=== PATIENT | male | born 1940 | race Caucasian/White ===

== ENCOUNTER 2018-03-30 08:28 | Emergency (ER) | payer OTHER ==
[~2018-03-30] VITALS: Ht 177.8 cm; Wt 88.5 kg
[~2018-03-30 08:28] MED LIST: ABAT250V; ALPR.5 PO; AMIODARONE HCL100 MG PO; ASCO500 PO; ASPI81CH PO; ASPI81EC; ASPI81EC PO; ATEN25; ATOR10; B50 COMPLEX PO; Beta Carot25000 UNIT PO; CAMPRAL; CELE100; CELE200 PO; CLOP75; CLOP75 PO; CODACE30 PO; CODLIVC PO; COSOPT PF EYE1 EACH OP; CYAN500 PO; ELIQUIS5 MG PO; ERGO400 PO; EZET10-40; FINA5 PO; HYDACE5 PO; Isosorbide Mono60 MG PO; L-Lysine500 M1 PO; LATA.005SO OD; LIVALO; MELA3 PO; METO25ER PO; MULTAQ; MULTAQ PO; Men's Multi-Vi1 EACH PO; Metoprolol Succ25 MG PO; NALT50 PO; NIAC500 PO; NIAC500ER; OMEP20ER; OXYACE5T PO; PANT40; PANT40 PO; PRED20 PO; PROM25 PO; ROSU10TA; SAM E PO; SERT50 PO; SPIR25 PO; TAMS.4ER PO; TIMDOROPSO BOTHEYES; TIMO.25OPS OD; TIMO.5OPG OD; TIMO.5OPSO OU; TIMO10T; TOBR.3OPSO OP; TOCO400 PO; TORSE20 PO; UBID100 PO; VYTORIN; WARF5 PO; WARF6 PO; Xalatan2.5 ML; ZALATAN OU
[2018-03-30 09:13] LABS: BASOPHILS ABSOLUTE AUTO 0.04 K/mm3 (0.00-0.23); BASOPHILS PERCENT AUTO 1 % (0-2); EOSINOPHILS ABSOLUTE AUTO 0.15 K/mm3 (0.00-0.68); EOSINOPHILS PERCENT AUTO 3 % (0-6); Hematocrit 44.3 % (37.0-53.0); Hemoglobin 14.8 g/dL (13.5-17.5); IMMATURE GRAN ABSOLUTE AUTO 0.01 K/mm3 (0.00-0.10); IMMATURE GRAN PERCENT AUTO 0 % (0-1); LYMPHOCYTES ABSOLUTE AUTO 1.49 K/mm3 (0.84-5.20); LYMPHOCYTES PERCENT AUTO 33 % (21-46); MONOCYTES ABSOLUTE AUTO 0.51 K/mm3 (0.16-1.47); MONOCYTES PERCENT AUTO 11 % (4-13); Mean Corpuscular HGB 30.9 pg (26.0-34.0); Mean Corpuscular HGB Conc 33.4 g/dL (31.5-36.5); Mean Corpuscular Volume 93 fL (80-100); Mean Platelet Volume 9.7 fL (9.1-12.4); NEUTROPHILS ABSOLUTE AUTO 2.36 K/mm3 (1.96-9.15); NEUTROPHILS PERCENT AUTO 52 % (41-73); Platelet Count 142 K/mm3 (150-400); RDW Standard Deviation 44.5 fL (35.1-46.3); Red Blood Cell Count 4.79 M/mm3 (4.30-5.90); White Blood Cell Count 4.56 K/mm3 (4.00-11.30)
[2018-03-30] MEDS ORDERED: SPIR25 PO (09:20)
[2018-03-30] MEDS ORDERED: TAMS.4ER PO (09:23)
[2018-03-30 09:28] LABS: Alanine Aminotransfer (ALT/SGP 27 U/L (12-78); Albumin, Blood 3.5 g/dL (3.4-5.0); Alk Phos 86 U/L (50-136); Anion Gap 8 mmol/L (6-16); Aspartate Aminotrans (AST/SGOT 23 U/L (12-37); Bilirubin, Total 0.7 mg/dL (0.1-1.0); Blood Urea Nitrogen 19 mg/dL (8-24); Bun/Creatinine Ratio 19.5 (12.0-20.0); CO2, Blood 27 mmol/L (21-32); Chloride, Blood 104 mmol/L (98-108); Creatinine, Blood 0.97 mg/dL (0.60-1.20); Globulin, Blood 3.4 g/dL (2.2-4.0); Glomerular Filtration Rate >60 (60-); Glucose, Blood 86 mg/dL (70-99); Potassium, Blood 4.1 mmol/L (3.5-5.5); Sodium, Blood 139 mmol/L (136-145); Total Protein, Blood 6.9 g/dL (6.4-8.2); Troponin I 0.028 ng/mL (0.000-0.040)
[2018-03-30 09:29] LABS: International Normalized Ratio 1.09; Prothrombin Time Results 11.4 Sec (9.7-11.5)
[2018-03-30] MEDS ORDERED: CLOP75 PO (10:09)
== END 2018-03-30 10:21 | disposition home or self-care (01) ==
LOC: ER 08:28
PROVIDERS: Physician Assistant
DX: I20.9 Angina pectoris, unspecified (principal); Z88.0 Allergy status to penicillin; Z88.1 Allergy status to other antibiotic agents; Z88.8 Allergy status to other drugs, medicaments and biological substances; Z79.899 Other long term (current) drug therapy; I25.10 Atherosclerotic heart disease of native coronary artery without angina pectoris; I48.91 Unspecified atrial fibrillation; E78.5 Hyperlipidemia, unspecified; I10 Essential (primary) hypertension; E11.9 Type 2 diabetes mellitus without complications; K21.9 Gastro-esophageal reflux disease without esophagitis; Z87.891 Personal history of nicotine dependence
CPT/HCPCS: 36415; 71046; 80053; 83880; 84484; 85025; 85610; 93005; 93010; 99284

== ENCOUNTER 2020-03-02 16:05 | Inpatient (IN) | payer OTHER ==
[~2020-03-02] VITALS: Ht 180.3 cm; Wt 85.0 kg
[2020-03-02 16:38] LABS: BASOPHILS ABSOLUTE AUTO 0.02 K/mm3 (0.00-0.23); BASOPHILS PERCENT AUTO 1 % (0-2); EOSINOPHILS ABSOLUTE AUTO 0.04 K/mm3 (0.00-0.68); EOSINOPHILS PERCENT AUTO 1 % (0-6); Hematocrit 42.9 % (37.0-53.0); Hemoglobin 14.1 g/dL (13.5-17.5); IMMATURE GRAN ABSOLUTE AUTO 0.01 K/mm3 (0.00-0.10); IMMATURE GRAN PERCENT AUTO 0 % (0-1); LYMPHOCYTES ABSOLUTE AUTO 0.55 K/mm3 (0.84-5.20); LYMPHOCYTES PERCENT AUTO 15 % (21-46); MONOCYTES ABSOLUTE AUTO 0.43 K/mm3 (0.16-1.47); MONOCYTES PERCENT AUTO 12 % (4-13); Mean Corpuscular HGB 30.7 pg (26.0-34.0); Mean Corpuscular HGB Conc 32.9 g/dL (31.5-36.5); Mean Corpuscular Volume 93 fL (80-100); Mean Platelet Volume 10.4 fL (9.1-12.4); NEUTROPHILS ABSOLUTE AUTO 2.65 K/mm3 (1.96-9.15); NEUTROPHILS PERCENT AUTO 72 % (41-73); Platelet Count 111 K/mm3 (150-400); RDW Coefficient Variation 14.2 % (11.7-14.2); RDW Standard Deviation 49.1 fL (35.1-46.3)
[2020-03-02 16:50] LABS: International Normalized Ratio 1.15; Prothrombin Time Results 12.2 Sec (9.7-11.5)
[2020-03-02 17:00] LABS: Alanine Aminotransfer (ALT/SGP 31 U/L (12-78); Albumin, Blood 3.4 g/dL (3.4-5.0); Albumin/Globulin Ratio 0.9 (0.8-1.8); Alk Phos 107 U/L (50-136); Anion Gap 6 mmol/L (6-16); Aspartate Aminotrans (AST/SGOT 54 U/L (12-37); Bilirubin, Total 1.3 mg/dL (0.1-1.0); Blood Urea Nitrogen 13 mg/dL (8-24); Bun/Creatinine Ratio 16.6 (12.0-20.0); CO2, Blood 22 mmol/L (21-32); Calcium, Blood 8.7 mg/dL (8.5-10.1); Chloride, Blood 105 mmol/L (98-108); Creatinine, Blood 0.79 mg/dL (0.60-1.20); Globulin, Blood 3.6 g/dL (2.2-4.0); Glomerular Filtration Rate >60 (60-); Glucose, Blood 106 mg/dL (70-99); Potassium, Blood 4.9 mmol/L (3.5-5.5); Sodium, Blood 133 mmol/L (136-145); Troponin I 0.136 ng/mL (0.000-0.040)
[2020-03-02] MEDS ORDERED: GABA300 PO (17:42)
[2020-03-02] MEDS ORDERED: POTCHL20ER PO (17:42)
[2020-03-02] MEDS ORDERED: CALCIUM 600 +1 EA11 PO (17:43)
[2020-03-03 00:41] LABS: BASOPHILS ABSOLUTE AUTO 0.03 K/mm3 (0.00-0.23); BASOPHILS PERCENT AUTO 1 % (0-2); EOSINOPHILS ABSOLUTE AUTO 0.07 K/mm3 (0.00-0.68); EOSINOPHILS PERCENT AUTO 2 % (0-6); Hematocrit 41.4 % (37.0-53.0); Hemoglobin 13.7 g/dL (13.5-17.5); IMMATURE GRAN ABSOLUTE AUTO 0.01 K/mm3 (0.00-0.10); IMMATURE GRAN PERCENT AUTO 0 % (0-1); LYMPHOCYTES ABSOLUTE AUTO 0.68 K/mm3 (0.84-5.20); LYMPHOCYTES PERCENT AUTO 19 % (21-46); MONOCYTES ABSOLUTE AUTO 0.56 K/mm3 (0.16-1.47); MONOCYTES PERCENT AUTO 16 % (4-13); Mean Corpuscular HGB 30.6 pg (26.0-34.0); Mean Corpuscular HGB Conc 33.1 g/dL (31.5-36.5); Mean Corpuscular Volume 92 fL (80-100); NEUTROPHILS ABSOLUTE AUTO 2.15 K/mm3 (1.96-9.15); NEUTROPHILS PERCENT AUTO 61 % (41-73); Platelet Count 109 K/mm3 (150-400); RDW Coefficient Variation 14.3 % (11.7-14.2); RDW Standard Deviation 48.3 fL (35.1-46.3); Red Blood Cell Count 4.48 M/mm3 (4.30-5.90)
[2020-03-03 00:54] LABS: Anion Gap 6 mmol/L (6-16); Blood Urea Nitrogen 11 mg/dL (8-24); Bun/Creatinine Ratio 13.4 (12.0-20.0); CO2, Blood 26 mmol/L (21-32); Calcium, Blood 8.2 mg/dL (8.5-10.1); Chloride, Blood 108 mmol/L (98-108); Creatinine, Blood 0.82 mg/dL (0.60-1.20); Glomerular Filtration Rate >60 (60-); Glucose, Blood 106 mg/dL (70-99); Potassium, Blood 3.9 mmol/L (3.5-5.5); Sodium, Blood 140 mmol/L (136-145)
[2020-03-05] MEDS ORDERED: AMLO5 PO (10:49)
[2020-03-05] MEDS ORDERED: ASPIR 8181 M1 PO (10:51)
== END 2020-03-05 11:05 | disposition home or self-care (01) | DRG 246 ==
LOC: ER 16:05 → PCU 18:35
PROVIDERS: Nurse Practitioner Acute Care; Physician Assistant; ADMIT Internal Medicine
PROC: 4A023N7 Measurement of Cardiac Sampling and Pressure, Left Heart, Percutaneous Approach (ICD-10-PCS; principal; 2020-03-04)
PROC: 027034Z Dilation of Coronary Artery, One Artery with Drug-eluting Intraluminal Device, Percutaneous Approach (ICD-10-PCS; 2020-03-04)
PROC: 02703ZZ Dilation of Coronary Artery, One Artery, Percutaneous Approach (ICD-10-PCS; 2020-03-04)
PROC: B2111ZZ Fluoroscopy of Multiple Coronary Arteries using Low Osmolar Contrast (ICD-10-PCS; 2020-03-04)
PROC: B2131ZZ Fluoroscopy of Multiple Coronary Artery Bypass Grafts using Low Osmolar Contrast (ICD-10-PCS; 2020-03-04)
PROC: B240ZZ3 Ultrasonography of Single Coronary Artery, Intravascular (ICD-10-PCS; 2020-03-04)
DX: T82.855A Stenosis of coronary artery stent, initial encounter (principal); I21.4 Non-ST elevation (NSTEMI) myocardial infarction; I48.20 Chronic atrial fibrillation, unspecified; I25.110 Atherosclerotic heart disease of native coronary artery with unstable angina pectoris; K21.9 Gastro-esophageal reflux disease without esophagitis; H40.9 Unspecified glaucoma; E11.9 Type 2 diabetes mellitus without complications; N40.0 Benign prostatic hyperplasia without lower urinary tract symptoms; Z95.1 Presence of aortocoronary bypass graft; Z98.52 Vasectomy status; Z87.891 Personal history of nicotine dependence; E78.5 Hyperlipidemia, unspecified; I48.91 Unspecified atrial fibrillation; Z95.5 Presence of coronary angioplasty implant and graft; K58.9 Irritable bowel syndrome, unspecified; Z79.82 Long term (current) use of aspirin
CPT/HCPCS: 36415; 71046; 76705; 76937; 80048; 80053; 83880; 84484; 85025; 85347; 85610; 85730; 92978; 93005; 93010; 93306; 93459; 94660; 94762; 99152; 99153; 99285-25; A9270; A9270-GY; C1725; C1753; C1769; C1874; C1884; C1887; C1894; C9604; J0461; J1644; J2250; J3010; J7030; Q9967

== ENCOUNTER → 2020-03-10 | Outpatient (CLI) | payer OTHER ==
[~2020-03-10] MED LIST changes: +AMLO5 PO; +ASPIR 8181 M1 PO; +CALCIUM 600 +1 EA11 PO; +GABA300 PO; +POTCHL20ER PO
[2020-03-11 14:48] LABS: Stool Occult Bld Immuno 1 Negative (NEGATIVE)
== END ==
PROVIDERS: Family Medicine
DX: R10.11 Right upper quadrant pain (principal)

== ENCOUNTER 2020-03-26 10:36 | Emergency (ER) | payer OTHER ==
[~2020-03-26] VITALS: Ht 180.3 cm; Wt 88.5 kg
[2020-03-26] MEDS ORDERED: Ultram50 MG PO (14:13)
== END 2020-03-26 15:04 | disposition home or self-care (01) ==
LOC: ER 10:36
DX: R55 Syncope and collapse (principal); S51.811A Laceration without foreign body of right forearm, initial encounter; S70.02XA Contusion of left hip, initial encounter; S40.012A Contusion of left shoulder, initial encounter; I48.91 Unspecified atrial fibrillation; Z88.0 Allergy status to penicillin; Z88.1 Allergy status to other antibiotic agents; Z88.8 Allergy status to other drugs, medicaments and biological substances; Z79.899 Other long term (current) drug therapy; Z79.01 Long term (current) use of anticoagulants; Z79.82 Long term (current) use of aspirin; Z79.02 Long term (current) use of antithrombotics/antiplatelets; I25.10 Atherosclerotic heart disease of native coronary artery without angina pectoris; Z95.5 Presence of coronary angioplasty implant and graft; E78.5 Hyperlipidemia, unspecified; I10 Essential (primary) hypertension; E11.9 Type 2 diabetes mellitus without complications; N40.0 Benign prostatic hyperplasia without lower urinary tract symptoms; K21.9 Gastro-esophageal reflux disease without esophagitis; Z87.891 Personal history of nicotine dependence; W18.30XA Fall on same level, unspecified, initial encounter
CPT/HCPCS: 36415; 73030; 73502; 93005; 93010; 99283-25

== ENCOUNTER → 2022-01-07 | Outpatient (CLI) | payer OTHER ==
[~2022-01-07] MED LIST changes: +Ultram50 MG PO
[2022-01-07 11:31] LABS: BASOPHILS ABSOLUTE AUTO 0.03 K/mm3 (0.00-0.23); BASOPHILS PERCENT AUTO 1 % (0-2); EOSINOPHILS ABSOLUTE AUTO 0.13 K/mm3 (0.00-0.68); EOSINOPHILS PERCENT AUTO 4 % (0-6); Hematocrit 44.8 % (37.0-53.0); Hemoglobin 15.1 g/dL (13.5-17.5); IMMATURE GRAN ABSOLUTE AUTO 0.01 K/mm3 (0.00-0.10); IMMATURE GRAN PERCENT AUTO 0 % (0-1); LYMPHOCYTES ABSOLUTE AUTO 0.67 K/mm3 (0.84-5.20); LYMPHOCYTES PERCENT AUTO 19 % (21-46); MONOCYTES ABSOLUTE AUTO 0.46 K/mm3 (0.16-1.47); MONOCYTES PERCENT AUTO 13 % (4-13); Mean Corpuscular HGB 31.4 pg (26.0-34.0); Mean Corpuscular HGB Conc 33.7 g/dL (31.5-36.5); Mean Corpuscular Volume 93 fL (80-100); NEUTROPHILS ABSOLUTE AUTO 2.22 K/mm3 (1.96-9.15); NEUTROPHILS PERCENT AUTO 63 % (41-73); RDW Coefficient Variation 13.7 % (11.7-14.2); RDW Standard Deviation 46.8 fL (35.1-46.3); Red Blood Cell Count 4.81 M/mm3 (4.30-5.90); White Blood Cell Count 3.52 K/mm3 (4.00-11.30)
[2022-01-07 11:54] LABS: Mean Platelet Volume 10.2 fL (9.1-12.4); Platelet Count 109 K/mm3 (150-400)
[2022-01-07 12:02] LABS: Alanine Aminotransfer (ALT/SGP 34 U/L (12-78); Albumin, Blood 3.8 g/dL (3.4-5.0); Albumin/Globulin Ratio 1.3 (0.8-1.8); Alk Phos 93 U/L (40-126); Anion Gap 7 mmol/L (6-16); Aspartate Aminotrans (AST/SGOT 22 U/L (12-37); Bilirubin, Total 1.2 mg/dL (0.1-1.0); Blood Urea Nitrogen 16 mg/dL (8-24); Bun/Creatinine Ratio 14.8 (12.0-20.0); CO2, Blood 30 mmol/L (21-32); Calcium, Blood 9.1 mg/dL (8.5-10.1); Chloride, Blood 103 mmol/L (98-108); Creatinine, Blood 1.08 mg/dL (0.60-1.20); Globulin, Blood 2.9 g/dL (2.2-4.0); Glomerular Filtration Rate >60 (60-); Glucose, Blood 99 mg/dL (70-99); Potassium, Blood 4.2 mmol/L (3.5-5.5); Sodium, Blood 140 mmol/L (136-145); Total Protein, Blood 6.7 g/dL (6.4-8.2)
== END ==
LOC: LAB SHORT 11:27
PROVIDERS: Physician Assistant Medical
DX: R53.83 Other fatigue (principal)
CPT/HCPCS: 80053; 84443; 85025

== ENCOUNTER 2024-12-13 14:50 | Inpatient (IN) | payer OTHER ==
[~2024-12-13] VITALS: Ht 172.7 cm; Wt 90.0 kg
[~2024-12-13 14:50] MED LIST changes: +ALPR.25 PO; +Aspir 8181 MG PO; +DORZOLAMIDE-TIM10 ML BOTHEYES; +EZET10 PO; +LATA.005SO BOTHEYES; +NITR.4SL SL; +PANTOPRAZOLE SO20 M1 PO; +TRELEGY ELLIPT1 EAC1 INH; -Xalatan2.5 ML
[2024-12-13 15:21] LABS: BASOPHILS ABSOLUTE AUTO 0.03 K/mm3 (0.00-0.23); BASOPHILS PERCENT AUTO 1 % (0-2); EOSINOPHILS ABSOLUTE AUTO 0.14 K/mm3 (0.00-0.68); EOSINOPHILS PERCENT AUTO 3 % (0-6); Hematocrit 45.1 % (37.0-53.0); Hemoglobin 14.9 g/dL (13.5-17.5); IMMATURE GRAN PERCENT AUTO 0 % (0-1); LYMPHOCYTES PERCENT AUTO 19 % (21-46); MONOCYTES ABSOLUTE AUTO 0.42 K/mm3 (0.16-1.47); MONOCYTES PERCENT AUTO 10 % (4-13); Mean Corpuscular Volume 91 fL (80-100); Mean Platelet Volume 9.6 fL (9.1-12.4); NEUTROPHILS ABSOLUTE AUTO 2.73 K/mm3 (1.96-9.15); NEUTROPHILS PERCENT AUTO 66 % (41-73); Platelet Count 126 K/mm3 (150-400); RDW Coefficient Variation 14.5 % (11.7-14.2); RDW Standard Deviation 48.6 fL (35.1-46.3); Red Blood Cell Count 4.96 M/mm3 (4.30-5.90); White Blood Cell Count 4.12 K/mm3 (4.00-11.30)
[2024-12-13] MEDS ORDERED: Aspirin 325 MG Tab PO ONE (15:30)
[2024-12-13 15:51] LABS: Albumin/Globulin Ratio 1.1 (0.8-1.8); Bilirubin, Total 1.3 mg/dL (0.1-1.0); Calcium, Blood 9.7 mg/dL (8.5-10.1); Globulin, Blood 3.6 g/dL (2.2-4.0); Potassium, Blood 3.8 mmol/L (3.5-5.5); Total Protein, Blood 7.6 g/dL (6.4-8.2)
[2024-12-13 15:59] LABS: Anti-Xa UFH, PHA Monitoring 0.27 IU/mL; International Normalized Ratio 1.09; Prothrombin Time Results 11.6 Sec (9.7-11.5)
[2024-12-13] MEDS ORDERED: FentaNYL Citrate 50 MCG/ML 2 ML Injection IV PRN (16:55)
[2024-12-13] MEDS ORDERED: Nitroglycerin 0.4 MG SUBL SL PRN (16:55)
[2024-12-13] MEDS ORDERED: FLU VACC TS2024-25(6MOS UP)/PF 45 MCG/0.5 ML SYRINGE IM SCH (16:55)
[2024-12-13] MEDS ORDERED: NS 1,000 ML IV SCH (17:00)
[2024-12-13] MEDS ORDERED: Ondansetron HCl 2 MG / ML 2ML Vial IV PRN (17:00)
[2024-12-13] MEDS ORDERED: Clopidogrel Bisulfate 300 MG Cap PO ONE ×2 (17:00→19:55)
[2024-12-13] MEDS ORDERED: Dose Adjust by Pharmacy XX STA (17:29)
[2024-12-13] MEDS ORDERED: Heparin Sodium,Porcine/0.5 NS 500 ML IV SCH (17:30)
[2024-12-13 18:48] VITALS: BP 155/86
[2024-12-13] MEDS ORDERED: SUPER B-50 COM1 EACH PO (18:52)
[2024-12-13] MEDS ORDERED: C COMPLEX1000 M1 PO (18:52)
[2024-12-13] MEDS ORDERED: ALPHA LIPOIC A600 M1 PO (18:59)
[2024-12-13] MEDS ORDERED: Natrol Alpha 3300 MG PO (19:00)
[2024-12-13] MEDS ORDERED: ALPRAZolam 0.5 MG Tab PO ONE (20:50)
[2024-12-13] MEDS ORDERED: ALPRAZolam 0.25 MG Tab PO PRN (21:15)
[2024-12-13 23:47] VITALS: BP 115/68
[2024-12-14] VITALS (7 sets, daily range): BP systolic 108–133; BP diastolic 67–87
[2024-12-14 02:02] LABS: BASOPHILS ABSOLUTE AUTO 0.04 K/mm3 (0.00-0.23); BASOPHILS PERCENT AUTO 1 % (0-2); EOSINOPHILS ABSOLUTE AUTO 0.15 K/mm3 (0.00-0.68); EOSINOPHILS PERCENT AUTO 4 % (0-6); Hemoglobin 12.9 g/dL (13.5-17.5); IMMATURE GRAN PERCENT AUTO 0 % (0-1); LYMPHOCYTES ABSOLUTE AUTO 0.82 K/mm3 (0.84-5.20); LYMPHOCYTES PERCENT AUTO 23 % (21-46); MONOCYTES ABSOLUTE AUTO 0.38 K/mm3 (0.16-1.47); MONOCYTES PERCENT AUTO 11 % (4-13); Mean Corpuscular HGB 30.6 pg (26.0-34.0); Mean Corpuscular HGB Conc 33.1 g/dL (31.5-36.5); Mean Corpuscular Volume 92 fL (80-100); Mean Platelet Volume 9.7 fL (9.1-12.4); NEUTROPHILS PERCENT AUTO 61 % (41-73); Platelet Count 105 K/mm3 (150-400); RDW Coefficient Variation 14.6 % (11.7-14.2); RDW Standard Deviation 49.6 fL (35.1-46.3); Red Blood Cell Count 4.22 M/mm3 (4.30-5.90); White Blood Cell Count 3.59 K/mm3 (4.00-11.30)
[2024-12-14 02:03] LABS: Albumin, Blood 3.2 g/dL (3.4-5.0); Albumin/Globulin Ratio 1.1 (0.8-1.8); Bilirubin, Total 1.1 mg/dL (0.1-1.0); Bun/Creatinine Ratio 24.5 (12.0-20.0); Calcium, Blood 9.4 mg/dL (8.5-10.1); Creatinine, Blood 0.82 mg/dL (0.60-1.20); Globulin, Blood 2.8 g/dL (2.2-4.0); Potassium, Blood 3.9 mmol/L (3.5-5.5)
[2024-12-14] MEDS ORDERED: Dose Adjust by Pharmacy XX STA ×3 (02:39→09:57)
--- NOTE | 2024-12-14 04:33 | NUR ---
SHIFT SUMMARY PT A&OX4. VSS ON RA >97%. PT ON TELE IN AFIB, DARCY LOW 35HR. PT USING HOME CPAP HS. PT NPO FOR POTENTIAL INTERVENTIONS. PT USING URINAL AT BEDSIDE WITH GOOD OUTPUT. HERPARIN CONTINUOUSLY RUNNING @16U WITH NS @75CC/HR RUNNING X1 BAG, IN OTHER ARM. SINCE ARRIVAL TO UNIT PT HAS NO C/O CP OR PAIN ANYWHERE ELSE. NO FURTHER QUESTIONS OR CONCERNS AT THIS TIME. WILL CONTINUE WITH PLAN OF CARE AND REPORT TO ONCOMING DAY NURSE.
[2024-12-14] MEDS ORDERED: Pantoprazole Sodium 20 MG Tab PO SCH (06:00)
[2024-12-14] MEDS ORDERED: Clopidogrel Bisulfate 75 MG Tab PO SCH (09:00)
[2024-12-14] MEDS ORDERED: Potassium Chloride 20 MEQ TabCR PO SCH (09:00)
[2024-12-14] MEDS ORDERED: Aspirin 81 MG Chew PO SCH (09:00)
[2024-12-14] MEDS ORDERED: Isosorbide Mononitrate 60 MG TABCR PO SCH (09:00)
[2024-12-14] MEDS ORDERED: Finasteride 5 MG Tab PO SCH (09:00)
[2024-12-14] MEDS ORDERED: Dorzolamide/Timolol Opth Soln 10 ML BOTHEYES SCH (09:00)
[2024-12-14] MEDS ORDERED: Torsemide 20 MG TAB PO SCH (09:00)
[2024-12-14] MEDS ORDERED: Acetaminophen 325 MG TABLET PO PRN (09:55)
[2024-12-14] MEDS ORDERED: Verapamil HCL 2.5 MG/ML 2ML Injection ONE (14:17)
[2024-12-14] MEDS ORDERED: NS 250 ML IV ONE (14:17)
[2024-12-14] MEDS ORDERED: NS 1,000 ML IV ONE ×2 (14:18→15:08)
[2024-12-14] MEDS ORDERED: Heparin Sodium 1000 Units/ML 10ML MDV ONE ×2 (14:18→16:20)
[2024-12-14] MEDS ORDERED: Nitroglycerin 2 MG/20 ML BTL ONE (14:18)
[2024-12-14] MEDS ORDERED: Midazolam HCl 1MG / ML 2ML Vial ONE (15:08)
[2024-12-14] MEDS ORDERED: FentaNYL Citrate 50 MCG/ML 2 ML Injection ONE (15:08)
[2024-12-14] MEDS ORDERED: NS 1,000 ML IV SCH (17:45)
--- NOTE | 2024-12-14 18:20 | NUR ---
SHIFT SUMMARY: PT HAS BEEN A&Ox4, VERY [place], ABLE TO MAKE NEEDS KNOWN. PT DENIES SOB, O2 SATS >93% ON RA. PT DENIES CP THIS SHIFT, AFIB ON MONITOR RATE MOSTLY 40s-50s WHICH PT STATES IS NORMAL FOR HIM. HEPARIN INFUSION PER ORDERS UNTIL PT WENT TO BEATER BOSS, RETURNING TO ROOM APPROX 1740, R RADIAL SITE W/TR BAND INFLATED TO 12CC, APPEARS WNL AT THIS TIME. POST ANGIO EKG IN PROGRESS AT THIS TIME, FLUIDS TO BE STARTED PER ORDER.
[2024-12-14] MEDS ORDERED: Tamsulosin HCl 0.4 MG Cap PO SCH (21:00)
[2024-12-14] MEDS ORDERED: Gabapentin 400 MG Cap PO SCH (21:00)
[2024-12-14] MEDS ORDERED: Latanoprost 0.005% Opth Soln 2.5 ML BOTHEYES SCH (21:00)
[2024-12-15 01:04] VITALS: BP 108/71
[2024-12-15 04:22] VITALS: BP 97/64
[2024-12-15 05:27] LABS: BASOPHILS ABSOLUTE AUTO 0.02 K/mm3 (0.00-0.23); BASOPHILS PERCENT AUTO 1 % (0-2); EOSINOPHILS ABSOLUTE AUTO 0.09 K/mm3 (0.00-0.68); EOSINOPHILS PERCENT AUTO 3 % (0-6); Hematocrit 37.4 % (37.0-53.0); Hemoglobin 12.3 g/dL (13.5-17.5); IMMATURE GRAN PERCENT AUTO 0 % (0-1); LYMPHOCYTES ABSOLUTE AUTO 0.63 K/mm3 (0.84-5.20); LYMPHOCYTES PERCENT AUTO 21 % (21-46); MONOCYTES ABSOLUTE AUTO 0.39 K/mm3 (0.16-1.47); MONOCYTES PERCENT AUTO 13 % (4-13); Mean Corpuscular HGB 30.1 pg (26.0-34.0); Mean Corpuscular HGB Conc 32.9 g/dL (31.5-36.5); Mean Corpuscular Volume 92 fL (80-100); Mean Platelet Volume 9.9 fL (9.1-12.4); NEUTROPHILS ABSOLUTE AUTO 1.85 K/mm3 (1.96-9.15); NEUTROPHILS PERCENT AUTO 62 % (41-73); Platelet Count 92 K/mm3 (150-400); RDW Coefficient Variation 14.6 % (11.7-14.2); RDW Standard Deviation 49.1 fL (35.1-46.3); Red Blood Cell Count 4.08 M/mm3 (4.30-5.90); White Blood Cell Count 2.98 K/mm3 (4.00-11.30)
[2024-12-15] MEDS ORDERED: Atropine Sulfate 0.1 MG/ML 10ML SYR IV ONE (05:50)
[2024-12-15 05:58] LABS: Albumin, Blood 3.1 g/dL (3.4-5.0); Albumin/Globulin Ratio 1.1 (0.8-1.8); Bilirubin, Total 1.1 mg/dL (0.1-1.0); Bun/Creatinine Ratio 18.3 (12.0-20.0); Calcium, Blood 8.9 mg/dL (8.5-10.1); Creatinine, Blood 1.09 mg/dL (0.60-1.20); Globulin, Blood 2.7 g/dL (2.2-4.0); Total Protein, Blood 5.8 g/dL (6.4-8.2)
--- NOTE | 2024-12-15 06:10 | NUR ---
SHIFT SUMMARY PT REMAINS A&OX4. VSS ON RA, USING CPAP HS. PT S/P ANGIO. SITE CDI, TR BAND REMOVED AND COVERED WITH TEGADERM. PT STATING HE FEELS GREAT. 0500 EKG ORDER COMPLETE, IN CHART. ON TELE REMAINS IN AFIB WITH HR REMAINING 30s-50s. PT DID HAVE A 3 BEAT RUN WITH HR @ 26BPM. MD JOHNSTON NOTIFIED AND ARRIVED TO BEDSIDE TO ASSESS PT. PTs BPs BECAME SOFTER THAN NORMAL. MD DECIDED TO GIVE 1MG ATROPINE D/T LOWERING BP OTHERWISE PT ASYMPTOMATIC. ATROPINE GIVEN WITH GOOD EFFECT. PTs HR STEADY IN 50s AT THIS TIME OF NOTE. NO FURTHER QUESTIONS OR CONCERNS AT THIS TIME. WILL CONTINUE WITH PLAN OF CARE AND REPORT TO ONCOMING NURSE.
[2024-12-15] MEDS ORDERED: Ezetimibe 10 MG Tab PO SCH (09:00)
[2024-12-15 09:23] VITALS: BP 138/88
[2024-12-15] MEDS ORDERED: Apixaban 5 MG Tab PO SCH (10:00)
--- NOTE | 2024-12-15 11:11 | NUR ---
Spiritual Care Visit and Family Support Pt. is awake in bed and welcomed my visit. A Eucharistic volunteer is present and requested that I bring the Pts. tothe room. Pt. and family are known to this adolescent counselor from the community. Found the Pts. and daughter who verbalized they are from [facility] in [place]. Family verbalized gratitude for the spiritual care support and welcomed this adolescent counselor to return.
[2024-12-15] MEDS ORDERED: Aspirin 81 MG Chew PO SCH (11:20)
[2024-12-15 11:21] VITALS: BP 109/68
[2024-12-15] MEDS ORDERED: ASPI81CH PO (13:36)
--- NOTE | 2024-12-15 15:03 | NUR ---
DISCHARGE SUMMARY PT A&Ox4, CALLS AND COMMUNICATE NEEDS APPROPRIATELY. BP STABLE, SB-SR 40-70's, DENIES CP/PRESSURE. SpO2> 92% RA, DENIES SOB. R RADIAL SITE WNL, ARM BOARD IN PLACED. 1 ASSIST WITH FWW IN ROOM. CONTINENT OF URINE AND BOWEL. NO C/O PAIN. [place]. DISCHARGE INSTRUCTIONS PROVIDED WITH AT BEDSIDE. ALL PT BELONGINGS GATHERED. PT TAKEN OUT VIA WHEELCHIAR BY CLINICAL STAFF MEMBER AT APPROXIMATELY 1455.
== END 2024-12-15 14:52 | disposition home or self-care (01) | DRG 321 ==
LOC: ER 14:50 → PCU 14:51
PROVIDERS: Family Medicine; Student in an Organized Health Care Education/Training Program; ADMIT Internal Medicine
PROC: 027034Z Dilation of Coronary Artery, One Artery with Drug-eluting Intraluminal Device, Percutaneous Approach (ICD-10-PCS; principal; 2024-12-14)
PROC: 4A033BC Measurement of Arterial Pressure, Coronary, Percutaneous Approach (ICD-10-PCS; 2024-12-14)
PROC: B2111ZZ Fluoroscopy of Multiple Coronary Arteries using Low Osmolar Contrast (ICD-10-PCS; 2024-12-14)
PROC: B2131ZZ Fluoroscopy of Multiple Coronary Artery Bypass Grafts using Low Osmolar Contrast (ICD-10-PCS; 2024-12-14)
DX: T82.855A Stenosis of coronary artery stent, initial encounter (principal); I21.4 Non-ST elevation (NSTEMI) myocardial infarction; I25.810 Atherosclerosis of coronary artery bypass graft(s) without angina pectoris; I48.19 Other persistent atrial fibrillation; I50.32 Chronic diastolic (congestive) heart failure; Y71.2 Prosthetic and other implants, materials and accessory cardiovascular devices associated with adverse incidents; I25.10 Atherosclerotic heart disease of native coronary artery without angina pectoris; I11.0 Hypertensive heart disease with heart failure; E78.5 Hyperlipidemia, unspecified; E11.9 Type 2 diabetes mellitus without complications; I27.20 Pulmonary hypertension, unspecified; I34.0 Nonrheumatic mitral (valve) insufficiency; G47.33 Obstructive sleep apnea (adult) (pediatric); K21.9 Gastro-esophageal reflux disease without esophagitis; D69.6 Thrombocytopenia, unspecified; F41.1 Generalized anxiety disorder; F10.90 Alcohol use, unspecified, uncomplicated; I49.5 Sick sinus syndrome; N40.0 Benign prostatic hyperplasia without lower urinary tract symptoms; E55.9 Vitamin D deficiency, unspecified; I25.2 Old myocardial infarction; I95.9 Hypotension, unspecified; Z88.0 Allergy status to penicillin; Z88.1 Allergy status to other antibiotic agents; Z88.8 Allergy status to other drugs, medicaments and biological substances; Z79.01 Long term (current) use of anticoagulants; Z79.02 Long term (current) use of antithrombotics/antiplatelets; Z87.891 Personal history of nicotine dependence; Z95.5 Presence of coronary angioplasty implant and graft
CPT/HCPCS: 36415; 71046; 76937; 80053; 83735; 83880; 84484; 85025; 85347; 85520; 85610; 85730; 93005; 93010; 93246; 93306; 93455; 93571; 94762; 96374; 99152; 99153; 99285-25; A9270; C1725; C1769; C1874; C1887; C1894; C9604; G0378; J0461; J1644; J2250; J2470; J3010; J7030; J7050; Q9967

== ENCOUNTER 2024-12-21 14:13 | Observation (INO) | payer OTHER ==
[~2024-12-21] VITALS: Ht 177.8 cm; Wt 87.2 kg
[~2024-12-21 14:13] MED LIST changes: +ALPHA LIPOIC A600 M1 PO; +C COMPLEX1000 M1 PO; +Natrol Alpha 3300 MG PO; +SUPER B-50 COM1 EACH PO
[2024-12-21 15:13] LABS: BASOPHILS ABSOLUTE AUTO 0.04 K/mm3 (0.00-0.23); BASOPHILS PERCENT AUTO 1 % (0-2); EOSINOPHILS ABSOLUTE AUTO 0.11 K/mm3 (0.00-0.68); EOSINOPHILS PERCENT AUTO 3 % (0-6); Hematocrit 38.9 % (37.0-53.0); Hemoglobin 13.1 g/dL (13.5-17.5); IMMATURE GRAN ABSOLUTE AUTO 0.01 K/mm3 (0.00-0.10); IMMATURE GRAN PERCENT AUTO 0 % (0-1); LYMPHOCYTES ABSOLUTE AUTO 0.69 K/mm3 (0.84-5.20); LYMPHOCYTES PERCENT AUTO 17 % (21-46); MONOCYTES ABSOLUTE AUTO 0.45 K/mm3 (0.16-1.47); MONOCYTES PERCENT AUTO 11 % (4-13); Mean Corpuscular HGB 30.5 pg (26.0-34.0); Mean Corpuscular HGB Conc 33.7 g/dL (31.5-36.5); Mean Corpuscular Volume 91 fL (80-100); Mean Platelet Volume 10.3 fL (9.1-12.4); NEUTROPHILS PERCENT AUTO 68 % (41-73); Platelet Count 118 K/mm3 (150-400); RDW Coefficient Variation 14.5 % (11.7-14.2); Red Blood Cell Count 4.29 M/mm3 (4.30-5.90)
[2024-12-21 15:30] LABS: Albumin, Blood 3.7 g/dL (3.4-5.0); Albumin/Globulin Ratio 1.2 (0.8-1.8); Bun/Creatinine Ratio 19.4 (12.0-20.0); Calcium, Blood 9.1 mg/dL (8.5-10.1); Creatinine, Blood 0.88 mg/dL (0.60-1.20); Globulin, Blood 3.2 g/dL (2.2-4.0); Potassium, Blood 4.3 mmol/L (3.5-5.5); Total Protein, Blood 6.9 g/dL (6.4-8.2)
[2024-12-21] MEDS ORDERED: ALPRAZolam 0.25 MG Tab PO PRN (18:45)
[2024-12-21] MEDS ORDERED: Gabapentin 400 MG Cap PO SCH (21:00)
[2024-12-21] MEDS ORDERED: FLU VACC TS2024-25(6MOS UP)/PF 45 MCG/0.5 ML SYRINGE IM ONE (21:00)
[2024-12-21] MEDS ORDERED: Apixaban 5 MG Tab PO SCH (21:00)
[2024-12-21 22:06] VITALS: BP 151/75
[2024-12-21 22:07] VITALS: BP 151/75
[2024-12-22 02:38] VITALS: BP 121/73
[2024-12-22 04:52] VITALS: BP 111/66
--- NOTE | 2024-12-22 05:42 | NUR ---
SHIFT SUMMARY A&0X4,[place]ET[place], APPEARED TO HAVE RESTED WELL OVERNIGHT WITH CPAP ON ROOM AIR AFTER PRN XANAX 0.5MG GIVEN PER REQUEST. NO C/O CHEST PAIN OR PRESSURE, TROPONINS WNL. CALL LIGHT IN REACH AND USES APPROPRIATELY TO VOICE NEEDS. REFUSED SCDs BUT TAKES ELEQUIS. TELEMETRY AND IS A FIB WITH RATE OF 40s TO 60s, NO COMPLAINTS OR SIGNIFICANT EVENTS OVERNIGHT. VITALS SIGNS NORMAL.
[2024-12-22] MEDS ORDERED: Pantoprazole Sodium 20 MG Tab PO SCH (06:00)
[2024-12-22 07:04] VITALS: BP 118/72
[2024-12-22] MEDS ORDERED: Ezetimibe 10 MG Tab PO SCH (09:00)
[2024-12-22] MEDS ORDERED: Aspirin 81 MG Chew PO SCH (09:00)
[2024-12-22] MEDS ORDERED: Tamsulosin HCl 0.4 MG Cap PO SCH (09:00)
[2024-12-22] MEDS ORDERED: Clopidogrel Bisulfate 75 MG Tab PO SCH (09:00)
[2024-12-22] MEDS ORDERED: Torsemide 20 MG TAB PO SCH (09:00)
[2024-12-22] MEDS ORDERED: Finasteride 5 MG Tab PO SCH (09:00)
[2024-12-22] MEDS ORDERED: Isosorbide Mononitrate 60 MG TABCR PO SCH (09:00)
[2024-12-22 11:21] VITALS: BP 112/73
--- NOTE | 2024-12-22 14:53 | NUR ---
PT AOX4 AND COOPERATIVE OF CARE DISCHARGED AT 1445. PT HAD ALL PAPERWORK REVIEWED AND EDUCATIONAL MATERIAL SENT. PT ESCORTED OUT TO [facility] VIA WHEEL CHAIR WITH TO TRANSPORT HOME. PT DENIED ANY CHEST PAIN.
== END 2024-12-22 14:30 | disposition home or self-care (01) ==
LOC: ER 14:13 → ERHOLD 14:14 → MEDS 14:14 → ENPENDDIS 12-22 14:16 → MEDS 12-22 14:30
PROVIDERS: Physician Assistant; ADMIT Internal Medicine
DX: R07.89 Other chest pain (principal); R00.1 Bradycardia, unspecified; I25.10 Atherosclerotic heart disease of native coronary artery without angina pectoris; I25.2 Old myocardial infarction; I48.21 Permanent atrial fibrillation; I11.0 Hypertensive heart disease with heart failure; I50.20 Unspecified systolic (congestive) heart failure; N40.0 Benign prostatic hyperplasia without lower urinary tract symptoms; E78.5 Hyperlipidemia, unspecified; K21.9 Gastro-esophageal reflux disease without esophagitis; G47.33 Obstructive sleep apnea (adult) (pediatric); Z87.891 Personal history of nicotine dependence; Z79.01 Long term (current) use of anticoagulants; Z79.82 Long term (current) use of aspirin; Z79.899 Other long term (current) drug therapy; Z88.0 Allergy status to penicillin; Z88.1 Allergy status to other antibiotic agents; Z88.8 Allergy status to other drugs, medicaments and biological substances; Z95.5 Presence of coronary angioplasty implant and graft
CPT/HCPCS: 36415; 71046; 80053; 83690; 84484; 85025; 93005; 93010; 94660; 99285-25; A9270; G0378; J2470

== ENCOUNTER 2025-03-07 04:07 | Observation (INO) | payer OTHER ==
[~2025-03-07] VITALS: Ht 175.3 cm; Wt 86.0 kg
[~2025-03-07 04:07] MED LIST changes: +ISOSORBIDE MONO PO; -Isosorbide Mono60 MG PO
[2025-03-07 04:32] LABS: BASOPHILS ABSOLUTE AUTO 0.02 K/mm3 (0.00-0.23); BASOPHILS PERCENT AUTO 0 % (0-2); EOSINOPHILS ABSOLUTE AUTO 0.06 K/mm3 (0.00-0.68); EOSINOPHILS PERCENT AUTO 1 % (0-6); Hemoglobin 13.6 g/dL (13.5-17.5); IMMATURE GRAN ABSOLUTE AUTO 0.02 K/mm3 (0.00-0.10); IMMATURE GRAN PERCENT AUTO 0 % (0-1); LYMPHOCYTES ABSOLUTE AUTO 0.78 K/mm3 (0.84-5.20); LYMPHOCYTES PERCENT AUTO 16 % (21-46); MONOCYTES ABSOLUTE AUTO 0.43 K/mm3 (0.16-1.47); MONOCYTES PERCENT AUTO 9 % (4-13); Mean Corpuscular HGB 29.8 pg (26.0-34.0); Mean Corpuscular HGB Conc 33.2 g/dL (31.5-36.5); Mean Corpuscular Volume 90 fL (80-100); NEUTROPHILS ABSOLUTE AUTO 3.46 K/mm3 (1.96-9.15); NEUTROPHILS PERCENT AUTO 73 % (41-73); Platelet Count 105 K/mm3 (150-400); RDW Coefficient Variation 14.1 % (11.7-14.2); RDW Standard Deviation 45.9 fL (35.1-46.3); Red Blood Cell Count 4.57 M/mm3 (4.30-5.90); White Blood Cell Count 4.77 K/mm3 (4.00-11.30)
[2025-03-07 04:46] LABS: Bun/Creatinine Ratio 20.9 (12.0-20.0); Calcium, Blood 8.9 mg/dL (8.5-10.1); Creatinine, Blood 0.86 mg/dL (0.60-1.20); Magnesium, Blood 2.5 mg/dL (1.6-2.4); Potassium, Blood 4.1 mmol/L (3.5-5.5)
[2025-03-07] MEDS ORDERED: NS 1,000 ML IV ONE (05:50)
[2025-03-07] MEDS ORDERED: Ondansetron HCl 2 MG / ML 2ML Vial IV PRN (05:50)
[2025-03-07] MEDS ORDERED: Nitroglycerin 0.4 MG SUBL SL PRN (05:50)
[2025-03-07] MEDS ORDERED: FentaNYL Citrate 50 MCG/ML 2 ML Injection IV PRN (05:50)
[2025-03-07] MEDS ORDERED: Aspirin 81 MG Chew PO ONE (05:55)
[2025-03-07] MEDS ORDERED: ALPRAZolam 0.25 MG Tab PO PRN (06:45)
[2025-03-07] MEDS ORDERED: Pantoprazole Sodium 20 MG Tab PO SCH (06:45)
[2025-03-07] MEDS ORDERED: Clopidogrel Bisulfate 300 MG TABLET PO ONE (07:00)
[2025-03-07 07:16] LABS: International Normalized Ratio 1.17; Prothrombin Time Results 12.4 Sec (9.7-11.5)
[2025-03-07] MEDS ORDERED: Heparin Sodium 5000 Units/ML 1ML MDV IV ONE (07:45)
[2025-03-07] MEDS ORDERED: Heparin Sodium,Porcine/0.5 NS 500 ML IV SCH (07:45)
[2025-03-07] MEDS ORDERED: Torsemide 20 MG TAB PO SCH (09:00)
[2025-03-07] MEDS ORDERED: Aspirin 81 MG Chew PO SCH (09:00)
[2025-03-07] MEDS ORDERED: Finasteride 5 MG Tab PO SCH (09:00)
[2025-03-07] MEDS ORDERED: Isosorbide Mononitrate 60 MG TABCR PO SCH (09:00)
[2025-03-07] MEDS ORDERED: Ezetimibe 10 MG Tab PO SCH (09:00)
[2025-03-07] MEDS ORDERED: Potassium Chloride 20 MEQ TabCR PO SCH (09:00)
[2025-03-07] MEDS ORDERED: Latanoprost 0.005% Opth Soln 2.5 ML BOTHEYES SCH ×2 (09:00→21:00)
[2025-03-07] MEDS ORDERED: Dorzolamide/Timolol Opth Soln 10 ML BOTHEYES SCH (09:00)
[2025-03-07] MEDS ORDERED: Enoxaparin 40 MG/0.4 ML SYR SC SCH (09:00)
[2025-03-07] MEDS ORDERED: Clopidogrel Bisulfate 75 MG Tab PO SCH (09:00)
[2025-03-07 09:08] VITALS: BP 148/84
[2025-03-07 11:00] VITALS: BP 145/89
--- NOTE | 2025-03-07 14:10 | NUR ---
ADMIT TO PCU 14 THIS AM. PATIENT ALERT AND ORIENTED X4. HARD OF HEARING WITH ONE HEARING AID TO LEFT EAR. 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 WEARING GLASSES. PERRLA. FOLLOWING COMMANDS. SBA TO PCU BED. DENIES PAIN/NUMBNESS/TINGLING. IND AT BASELINE. TELE SHOWING AFIB WITH HR 30-60'S. SBP 140'S. DENIES CHEST PAIN/PRESSURE AT THIS TIME. CARDIOLOGY CONSULT IN PLACE AND DR. ALBERTS TO BEDSIDE. PLAN FOR ECHO. HEPARIN GTT AND NORMAL SALINE INFUSING PER EMAR. PATIENT OKAY TO EAT. MILD EDEMA TO BLE. ON ROOM AIR. LUNG SOUNDS CLEAR. DENIES COUGH/SOB. EVEN AND UNLABORED RESPIRATIONS. HOME CPAP BROUGHT IN BUT NOT FUNCTIONING. RT AND CASE MANAGEMENT WORKING TO OBTAIN NEW CPAP FOR PATIENT. BOWEL TONES PRESENT THROUGHOUT. TOLERATING PO DIET. DRINKING WATER AND TEA. USING URINAL IND. UP TO BATHROOM WITH 1 BOWEL MOVEMENT. DENIES ABDOMINAL PAIN/NAUSEA. SKIN C/D/I.
[2025-03-07] MEDS ORDERED: Dose Adjust by Pharmacy XX STA ×2 (15:24→22:01)
[2025-03-07 15:44] VITALS: BP 146/87
--- NOTE | 2025-03-07 17:52 | NUR ---
SHIFT SUMMARY: PATIENT REMAINS ALERT AND ORIENTED. ON ROOM AIR SATING ABOVE 95%. TELE SHOWING AFIB WITH HR 50'S. SBP 140'S. DENIES CHEST PAIN/PRESSURE/PALPITATIONS AT THIS TIME. HEPARIN GTT INFUSING. UP TO BATHROOM WITH SBA. USING URINAL IND. TOLERATING PO DIET. DENIES ABDOMINAL PAIN/NAUSEA. DR. العلي BY TO ROUND ON PATIENT THIS EVENING. THIS RN AT BEDSIDE FOR MD VISIT. CALL LIGHT IN REACH. DENIES NEEDS AT THIS TIME.
[2025-03-07 19:44] VITALS: BP 137/66
[2025-03-07] MEDS ORDERED: Gabapentin 400 MG Cap PO SCH (21:00)
[2025-03-07] MEDS ORDERED: Tamsulosin HCl 0.4 MG Cap PO SCH (21:00)
[2025-03-07] MEDS ORDERED: Ranolazine 500 MG ER Tablet PO SCH (21:00)
[2025-03-07 23:28] VITALS: BP 144/99
[2025-03-08 03:16] VITALS: BP 131/76
[2025-03-08 03:35] LABS: BASOPHILS ABSOLUTE AUTO 0.03 K/mm3 (0.00-0.23); BASOPHILS PERCENT AUTO 1 % (0-2); EOSINOPHILS ABSOLUTE AUTO 0.07 K/mm3 (0.00-0.68); EOSINOPHILS PERCENT AUTO 1 % (0-6); Hemoglobin 13.7 g/dL (13.5-17.5); IMMATURE GRAN ABSOLUTE AUTO 0.02 K/mm3 (0.00-0.10); IMMATURE GRAN PERCENT AUTO 0 % (0-1); LYMPHOCYTES ABSOLUTE AUTO 0.73 K/mm3 (0.84-5.20); LYMPHOCYTES PERCENT AUTO 13 % (21-46); MONOCYTES ABSOLUTE AUTO 0.59 K/mm3 (0.16-1.47); MONOCYTES PERCENT AUTO 11 % (4-13); Mean Corpuscular HGB 29.6 pg (26.0-34.0); Mean Corpuscular HGB Conc 33.4 g/dL (31.5-36.5); Mean Corpuscular Volume 89 fL (80-100); Mean Platelet Volume 9.9 fL (9.1-12.4); NEUTROPHILS PERCENT AUTO 74 % (41-73); Platelet Count 100 K/mm3 (150-400); RDW Standard Deviation 45.1 fL (35.1-46.3); Red Blood Cell Count 4.63 M/mm3 (4.30-5.90); White Blood Cell Count 5.44 K/mm3 (4.00-11.30)
[2025-03-08 03:56] LABS: Albumin, Blood 3.3 g/dL (3.4-5.0); Albumin/Globulin Ratio 1.1 (0.8-1.8); Bilirubin, Total 1.3 mg/dL (0.1-1.0); Bun/Creatinine Ratio 20.8 (12.0-20.0); Calcium, Blood 8.7 mg/dL (8.5-10.1); Creatinine, Blood 1.01 mg/dL (0.60-1.20); Potassium, Blood 4.3 mmol/L (3.5-5.5); Total Protein, Blood 6.3 g/dL (6.4-8.2)
[2025-03-08] MEDS ORDERED: Dose Adjust by Pharmacy XX STA (04:38)
--- NOTE | 2025-03-08 05:00 | NUR ---
SHIFT SUMMARY NO ACUTE CHANGES THIS SHIFT. VSS. AFIB CONTINUES WITH SLOW VENTRICULAR RESPONSE; HR LOW 40'S, BPSTABLE. PT DENYING CP/PRESSURE THIS SHIFT. ON RA / CPAP HS. REMAINS ON HEPARIN GTT - HAVING TO ADJUST FOR CRITICAL HIGH RESULT NOW. PT WANTING TO FURTHER DISCUSS RANEXA INITIATION WITH PROCESS CONTROLS TECHNICIAN IN AM BEFORE PROCEEDING WITH TAKING MEDICATION. OTHERWSIE, PT RESTING THIS SHIFT. BEDIN LOW POSITION. CALL LIGHT WITHIN REACH.
[2025-03-08 07:25] VITALS: BP 137/64
[2025-03-08] MEDS ORDERED: Apixaban 5 MG Tab PO SCH (08:00)
--- NOTE | 2025-03-08 08:07 | NUR ---
Dr. Paz is here to see the patient.
--- NOTE | 2025-03-08 08:20 | NUR ---
Pt declined Ranexa. Eliquis was restarted, heparin gtt dc'd at this time. From Dr. Paz standpoint, pt can d/c home .
--- NOTE | 2025-03-08 10:35 | NUR ---
Up to recliner chair upright with toni lift. Says that it feels good to be up. Working with Tian Santana PT at this time.
--- NOTE | 2025-03-08 11:32 | NUR ---
Discharge instructions were reviewed with the patient. He has no new prescriptions. He is taking his own CPAP home with him, states he cannot use it anymore due to its damaged condition; he is to follow up with his oxygen supplier. Pt called his to come and pick him up.
--- NOTE | 2025-03-08 12:38 | NUR ---
Pt discharged at 1130. Pt provided with contact information for cardiology and PCP follow ups, as well as recommendations for Tx and a chest pain handout. Pt expressed understanding with care plan, no further questions or concerns.
== END 2025-03-08 11:35 | disposition home or self-care (01) ==
LOC: ER 04:07 → PCU 04:08 → ERHOLD 04:08 → ER 05:47 → PCU 08:54
PROVIDERS: Emergency Medicine; ADMIT Internal Medicine
DX: I25.110 Atherosclerotic heart disease of native coronary artery with unstable angina pectoris (principal); N40.0 Benign prostatic hyperplasia without lower urinary tract symptoms; K21.9 Gastro-esophageal reflux disease without esophagitis; I48.20 Chronic atrial fibrillation, unspecified; I11.0 Hypertensive heart disease with heart failure; I50.20 Unspecified systolic (congestive) heart failure; E11.9 Type 2 diabetes mellitus without complications; G47.30 Sleep apnea, unspecified; E78.5 Hyperlipidemia, unspecified; F41.9 Anxiety disorder, unspecified; I25.2 Old myocardial infarction; Z79.01 Long term (current) use of anticoagulants; Z79.899 Other long term (current) drug therapy; Z95.1 Presence of aortocoronary bypass graft; Z88.8 Allergy status to other drugs, medicaments and biological substances; Z88.0 Allergy status to penicillin; Z88.1 Allergy status to other antibiotic agents
CPT/HCPCS: 36415; 71045; 80048; 80053; 83690; 83735; 84484; 85025; 85610; 85730; 93005; 93010; 93308; 93321; 94660; 96365; 96366; 96376; 99285-25; A9270; G0378; J1644; J2470; J7030

== ENCOUNTER 2025-08-23 18:43 | Emergency (ER) | payer OTHER ==
[~2025-08-23] VITALS: Ht 177.8 cm; Wt 87.5 kg
[2025-08-23 18:57] VITALS: BP 134/96
[2025-08-23] MEDS ORDERED: AFRIN15 M6 (20:18)
== END 2025-08-23 20:32 | disposition home or self-care (01) ==
LOC: ER 18:43
DX: R04.0 Epistaxis (principal); I48.91 Unspecified atrial fibrillation; I10 Essential (primary) hypertension; E78.5 Hyperlipidemia, unspecified; E11.9 Type 2 diabetes mellitus without complications; K21.9 Gastro-esophageal reflux disease without esophagitis; Z79.01 Long term (current) use of anticoagulants; Z88.0 Allergy status to penicillin; Z88.8 Allergy status to other drugs, medicaments and biological substances; Z79.899 Other long term (current) drug therapy; Z87.891 Personal history of nicotine dependence
CPT/HCPCS: 99283